=== PATIENT | male | born 1955 | race Caucasian/White ===

== ENCOUNTER 2019-10-05 13:33 | Emergency (ER) | payer BC ==
[~2019-10-05] VITALS: Ht 188 cm; Wt 86.2 kg
--- OUTSIDE RECORDS SUMMARY | 2019-10-05 14:51 | XMS REPORT | Continuity of Care Document ---
Author Author [facility] Organization [facility] Address [address] [place] [address] Phone Unavailable Care Team Providers Care Wireless Sales Representative Name Role Phone Unavailable Unavailable Problems Condition Name Condition Details Condition Category Status Onset Date Resolution Date Last Treatment Date Treating Clinician Comments Source Moderate major depression, single episode Moderate Ho or Depression, Single Episode Problem Active 2018-02-07 00:00:00 [facility] Generalized anxiety disorder Generalized Anxiety Disorder Problem Active 2018-02-07 00:00:00 [facility] Benign essential hypertension Benign Essential Hypertension Problem Active 2018-02-07 00:00:00 [facility] Insomnia Insomnia Problem Active 2016-05-05 00:00:00 [facility] Benign prostatic hypertrophy without outflow obstructi on Benign Prostatic Hypertrophy without Outflow Obstruction Problem Active 2016-05-05 00:00:0 0 [facility] Cramp in lower leg associated with rest Cramp in Lower Leg A ssociated with Rest Problem Active 2016-05-05 00:00:00 [facility] Chronic obstructive lung disease Chronic Obstructive Lung Diseas e Problem Active 2015-11-13 00:00:00 [facility] Allergies, Adverse Reactions, Alerts This patient has no known allergies or adverse reactions. Social History Smoking Status Start Date Stop Date Source Former Smoker [facility] P anni Medications Ordered Medication Name Filled Medication Name Start Date Stop Da te Current Medication? Ordering Clinician Indication Dosage Frequency Signature (SIG) Comments Components Source clotrimazole-betamethasone 1 %-0.05 % to pical cream APPLY TO THE AFFECTED AND SURROUNDING AREAS OF SKIN BY TOPICAL ROUTE 2 TIMES PER DAY IN THE MORNING AND EVENING FOR 2 WEEKS clotrimazole-betamethasone 1 %-0.05 % to pical cream APPLY TO THE AFFECTED AND SURROUNDING AREAS OF SKIN BY TOPICAL ROUTE 2 TIMES PER DAY IN THE MORNING AND EVENING FOR 2 WEEKS No clotrimazole-betamethasone 1 %-0.05 % topical cream APPLY TO THE AFFECTED AND SURROUNDING AREAS OF SKIN BY TOPICAL ROUTE 2 TIMES PER DAY IN THE MORNING AND EVENING FOR 2 WEEKS [facility] Flomax 0.4 mg capsule Take 1 capsule every day by oral route. Flomax 0.4 mg capsule Take 1 capsule every day by oral route. No 1capsule(s) Q1D Flomax 0.4 mg capsule Take 1 capsule every day by oral route. [facility] fluoxetine 10 mg tablet Take 1 tablet every day by ora l route. fluoxetine 10 mg tablet Take 1 tablet every day by oral route. No 1 Q1D fluoxetine 10 mg tablet Take 1 tablet every day by oral route. [facility] Medrol (Nilay) 4 mg tablets in a dose pack Take 1 tablet every day by oral route as directed. Medrol (Nilay) 4 mg tablets in a dose pack Take 1 tablet every day by oral route as directed. No 1 Q1D Medrol (Nilay) 4 mg tablets in a dose pack Take 1 tablet every day by oral route as directed. [facility] Spiriva with HandiHaler 18 mcg and inhal ation capsules Inhale 1 capsule every day by inhalation route in the evening. Spiriva with HandiHaler 18 mcg and inhalation capsules Inhale 1 capsule every day by inhalation route in the evening. No 1capsule(s) Q1D Spiriva wit h HandiHaler 18 mcg and inhalation capsules Inhale 1 capsule every day by inhalation route in the evening. [facility] ice Vital Signs Vital Name Observation Time Observation Value Comments Source BP Diastolic 2019-03-29 00:00:00 86 mm[Hg] [facility] Height 2019-03-29 00:00:00 68 [in_i] [facility] BMI (Body Mass Index) 2019-03-29 00:00:00 34.8 kg/m2 [facility] BP Systolic 2019-03-29 00:00:00 132 mm[Hg] [facility] Body Weight 2019-03-29 00:00:00 229 [lb_av] [facility] Procedures This patient has no known procedures. Encounters Start Date/Time End Date/Time Encounter Type Admission Type Attendi [facility] Care Department Encounter ID Source 2019-03-29 00:00:00 2019-03-29 00:00:00 Hero Escobar MD: [address], [place] [address], Ph. [facility] - [email or web address]_[email or web address] Reid [id number] [facility] Practice Results This patient has no known results.
--- OUTSIDE RECORDS SUMMARY | 2019-10-05 14:51 | XMS REPORT | Encounter Summary ---
Author Organization Unknown Address [address] [place] [id number] Phone [phone] Care Team Providers Care Director Of Exhibit Development Name Role Phone Dr. Christie Maxwell 3 [phone] Reason for Visit wheezing; skin problem/rash Instructions 1. Body mass index 30+ - obesity body mass index: care instructions learning about healthy weight 2. Chronic obstructive lung disease 3. Tinea cruris clotrimazole-betamethasone 1 %-0.05 % topical cream 4. Acute exacerbation of chronic obstruc tive airways disease Medrol (Nilay) 4 mg tablets in a dose pa ck Discussion Note: None recorded. Plan of Care Reminders Provider Appointments None recorded. Lab None recorded. Referral None recorded. Procedures None recorded. Surgeries None recorded. Imaging None recorded. Medications Name Start Date clotrimazole-betamethasone 1 %-0.05 % to pical cream APPLY TO THE AFFECTED AND SURROUNDING AREAS OF SKIN BY TOPICAL ROUTE 2 TIMES PER DAY IN THE MORNING AND EVENING FOR 2 WEEKS Flomax 0.4 mg capsule Take 1 capsule every day by oral route. fluoxetine 10 mg tablet Take 1 tablet every day by oral route. Medrol (Nilay) 4 mg tablets in a dose pack Take 1 tablet every day by oral route as directed. Spiriva with HandiHaler 18 mcg and inhal ation capsules Inhale 1 capsule every day by inhalation route in the evening. Medications Administered None recorded. Vitals Height Weight BMI Blood Pressure 5 ft 8 in 229 lbs 34.8 kg/m2 132/86 mm[Hg] Results Lab Results None recorded. Allergies Code Code System Name Reaction Severity Status Onset NKDA Problems Name Status Onset Date Source Chronic Obstructive Lung Disease Active 11/13/2015 Insomnia Active 05/05/2016 Benign Prostatic Hypertrophy without Outflow Obstruction Active 05/05/2016 Cramp in Lower Leg Associated with Rest Active 05/06/19 17 Moderate Major Depression, Single Episode Active 2017 Generalized Anxiety Disorder Active 02/07/2018 Benign Essential Hypertension Active 02/07/2018 Procedures Date Name Performed by 02/21/2004 Other Information not avai lable Vaccine List None recorded. Social History Tobacco Smoking Status Former Smoker Past Encounters 03/29/2019 Body Mass Index 30+ - Obesity; Chronic Obstructive Lung Disease; Tinea Cruris; Acute Exacerbation of Chronic Obstructive Airways Disease Hero Escobar MD: [address], [place] [address], Ph. History of Present Illness Note:Pt here with c/o wheezing. his spiriva is not on his insurance. he has tried advair but that didnt feel good. <div>he has COPD
<div>
</div><div> He has rash in the groin for sometime. he used otc meds with some relief but it didnt go away. </div></div> Review of Systems Comprehensive General Adult ROS Reported By: Patient Constitutional: Constitutional: no fever, no night sweats, no significant weight gain, no significant weight loss, no exercise intolerance Eyes: Eyes: no dry eyes ENMT: Ears: no difficulty hearing. Mouth/Throat: no sore throat Cardiovascular: Cardiovascular: no chest juan n, no arm pain on exertion Respiratory: Respiratory: cough, wheezing Gastrointestinal: Gastrointestinal: no abdomin al pain, no nausea Genitourinary: Genitourinary: no difficulty urinating Integumentary: Skin: no abnormal mole, no j aundice, no rashes, no laceration Endocrine: Endocrine: no fatigue Allergic/Immunologic: Allergy/Immunologic: no runn y nose, no itching, no hives, no frequent sneezing Physical Exam General Adult Exam (male) Reported By: Patient Constitutional: General Appearance: healthy- appearing, well-nourished. Level of Distress: NAD. Ambulation: ambulating normally Psychiatric: Insight: good judgement. Men champ Status: active and alert Head: Head: normocephalic, atrauma tic Eyes: Pupils: PERRLA. EOM: EOMI Neck: Neck: supple. Lymph Nodes: n o cervical LAD. Thyroid: no enlargement Lungs: Respiratory effort: no dyspn ea. Auscultation: good air movement, expiratory wheezing, rhonchi Cardiovascular: Heart Auscultation: RRR, nor mal S1, normal S2. Neck vessels: no carotid bruits. Pulses including femoral / pedal: normal throughout Abdomen: Bowel Sounds: normal. Inspec tion and Palpation: soft, non-distended, no tenderness. Hernia: none palpable Skin: Inspection and palpation: no lesions, rash; erythematous rash groin Back: Thoracolumbar Appearance: no rmal curvature
[2019-10-05] MEDS ORDERED: TETANUS/DIPHTHERIA TOX ADULT 0.5 ML SYR IM ONE (15:00)
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
--- NOTE | 2019-10-05 17:13 | Diagnostic Imaging Report ---
X-ray site and # of views HISTORY: Knee pain. COMPARISON: None available. FINDINGS: Bones/joints: No acute fracture or dislocation. There is small suprapatellar joint effusion. Soft tissues: No focal soft tissue abnormality. IMPRESSION: No acute fracture or dislocation. Suprapatellar joint effusion. Signed by: Edil Thompson MD on 10/05/2019 5:09 PM
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
[2019-10-05] MEDS ORDERED: TETANUS/DIPHTHERIA TOX ADULT 0.5 ML SYR ONE (18:19)
== END 2019-10-05 18:25 | disposition home or self-care (01) ==
LOC: ER 14:49
DX: S80.02XA Contusion of left knee, initial encounter (principal); V43.62XA Car passenger injured in collision with other type car in traffic accident, initial encounter; Y92.488 Other paved roadways as the place of occurrence of the external cause; J44.9 Chronic obstructive pulmonary disease, unspecified; N18.9 Chronic kidney disease, unspecified; F17.210 Nicotine dependence, cigarettes, uncomplicated
CPT/HCPCS: 90714; 99284